=== PATIENT | male | born 1935 | race Caucasian/White ===

== ENCOUNTER → 2018-08-03 | Outpatient (CLI) | payer OTHER, MEDICARE ==
[~2018-08-03] MED LIST: ADULT LOW DOSE81 MG; B-100 COMPLEX1 EAC1; CARVEDILOL12.5 MG; FISH OIL 1,0001 EAC5; FUROSEMIDE 40 M40 M1; HYDRALAZINE 5050 M1; LIPITOR80 MG; LISINOPRIL40 MG; MULTI-VITAMIN1 EAC5; VITAMIN D1000 UNI1; VITAMINC500; XANAX 0.5 MG0.5 M1
== END ==
LOC: HYPER 07-25 16:23
DX: T81.89XA Other complications of procedures, not elsewhere classified, initial encounter (principal); I70.235 Atherosclerosis of native arteries of right leg with ulceration of other part of foot; L89.890 Pressure ulcer of other site, unstageable; L97.511 Non-pressure chronic ulcer of other part of right foot limited to breakdown of skin; L89.152 Pressure ulcer of sacral region, stage 2; L84 Corns and callosities; M86.8X8 Other osteomyelitis, other site; I13.2 Hypertensive heart and chronic kidney disease with heart failure and with stage 5 chronic kidney disease, or end stage renal disease; I50.9 Heart failure, unspecified; N18.6 End stage renal disease; H40.9 Unspecified glaucoma; Z85.46 Personal history of malignant neoplasm of prostate; Z85.828 Personal history of other malignant neoplasm of skin; Z99.2 Dependence on renal dialysis; Z87.891 Personal history of nicotine dependence; Z89.411 Acquired absence of right great toe; Z95.1 Presence of aortocoronary bypass graft; Y92.89 Other specified places as the place of occurrence of the external cause; Y83.8 Other surgical procedures as the cause of abnormal reaction of the patient, or of later complication, without mention of misadventure at the time of the procedure

== ENCOUNTER → 2018-08-15 | Outpatient (CLI) | payer OTHER, MEDICARE ==
[~2018-08-15] MED LIST changes: +COENZYME Q10100 MG PO; +IMDUR 60 MG TAB60 M1 PO; +LOPRESSOR25 PO; +PLAVIX 75 MG TA75 M1 PO; +RENA-VITE RX T1 EACH PO; +RENVELA800 MG PO; +TYLENOL EXTRA500 MG PO
== END ==
LOC: HYPER 06:52
DX: T81.89XD Other complications of procedures, not elsewhere classified, subsequent encounter (principal); I70.235 Atherosclerosis of native arteries of right leg with ulceration of other part of foot; L97.521 Non-pressure chronic ulcer of other part of left foot limited to breakdown of skin; L89.153 Pressure ulcer of sacral region, stage 3; L89.890 Pressure ulcer of other site, unstageable; L84 Corns and callosities; I13.0 Hypertensive heart and chronic kidney disease with heart failure and stage 1 through stage 4 chronic kidney disease, or unspecified chronic kidney disease; N18.6 End stage renal disease; I50.9 Heart failure, unspecified; B35.1 Tinea unguium; Z87.891 Personal history of nicotine dependence; Z85.46 Personal history of malignant neoplasm of prostate; Z99.2 Dependence on renal dialysis; Y83.8 Other surgical procedures as the cause of abnormal reaction of the patient, or of later complication, without mention of misadventure at the time of the procedure

== ENCOUNTER 2018-08-17 11:30 | Observation (INO) | payer OTHER, MEDICARE ==
[~2018-08-17] VITALS: Ht 180.3 cm; Wt 69.9 kg
[~2018-08-17 11:30] MED LIST changes: -COENZYME Q10100 MG PO; -IMDUR 60 MG TAB60 M1 PO; -LOPRESSOR25 PO; -PLAVIX 75 MG TA75 M1 PO; -RENA-VITE RX T1 EACH PO; -RENVELA800 MG PO; -TYLENOL EXTRA500 MG PO
[2018-08-17 12:23] VITALS: BP 125/44
[2018-08-17] MEDS ORDERED: TYLENOL EXTRA500 MG PO (12:33)
[2018-08-17] MEDS ORDERED: COENZYME Q10100 MG PO (12:37)
[2018-08-17] MEDS ORDERED: IMDUR 60 MG TAB60 M1 PO (12:38)
[2018-08-17] MEDS ORDERED: LOPRESSOR25 PO (12:38)
[2018-08-17] MEDS ORDERED: RENVELA800 MG PO (12:39)
[2018-08-17] MEDS ORDERED: RENA-VITE RX T1 EACH PO (12:39)
[2018-08-17] MEDS ORDERED: PLAVIX 75 MG TA75 M1 PO (17:11)
--- NOTE | 2018-08-17 18:34 | NUR ---
174- PT ARRIVED TO UNIT FROM IR POST ANGIOGRAM WITH STENT PLACEMENT TO R AYO. PT IS ON BEDREST UNTIL 230. PT HAD MARIANNA THAT WAS PULLED IN IR. R GROIN SITE. SOFT INTACT NO HEMATOMA. CAREGIVER AT BEDSIDE. PT DENIES PAIN.
[2018-08-17 19:30] VITALS: BP 105/42; BP 114/37
[2018-08-17 20:00] VITALS: BP 100/40
[2018-08-17 20:32] VITALS: BP 111/43
[2018-08-17 21:00] VITALS: BP 120/48
[2018-08-17 22:00] VITALS: BP 102/49
[2018-08-18] VITALS: BP 114/37
[2018-08-18 00:36] VITALS: BP 114/37
--- NOTE | 2018-08-18 04:31 | NUR ---
ASSUMED PT'S CAR AT 1920; PT. ON BED REST; INSTRUCTED NOT TO MOVE RLE UNTIL 2305; AOX4; STAFF WRITER AT THE BED SIDE; VS WNL; NO C/O PAIN; PEDAL PULSES PRESENT; 1+; R GROING AREA; DRY; NO HEMATOMA THROUGH THE NIGHT; REFUSED BP MEDICATION AT HS; AT 2330 HR BETWEEN 110-130'S; EDUCATED ABOUT THE NEED OF MEDICATION; ST UNDERSTANDING; MEDICATION GIVEN; AFTER 45 MIN HR ON THE 80'S; NO C/O DIZZINESS OR HEADACHE; REQUESTED TO SIT ON CHAIR AFTER MIDNIGHT; EDUCATED ABOUT CALLING BEFORE STANDING; ST. UNDERSTANDING; CALL APROPIATELY; ASSESSMENT CHARGED; FOLLOWING POC; WILL PASS ON REPORT.
[2018-08-18 04:45] VITALS: BP 113/52
--- NOTE | 2018-08-18 15:00 | NUR ---
ASSUMED CARE OF PATIENT AT 0700. PATIENT STATED WHEN I MET HIM THAT HE NEEDED TO BE DISCHARGED BY 0800 FOR OUTPATIENT DIALYSIS. ASSESSMENTS CHARTED. PATIENT RIGHT GROIN SITE IS WITHOUT EDEMA, ECCHYMOSIS OR BLOOD. PATIENT DENIES ANY DISCOMFORT. IV AND TELE REMOVED. PATIENT'S CAREGIVER WAS AT THE BEDSIDE AND ASSISTED THE PATIENT IN GETTING DRESSED. PATIENT WAS TAKEN TO THE [facility] ENTRANCE VIA WHEELCHAIR AND DRIVEN HOME BY HIS CAREGIVER.
== END 2018-08-18 08:35 | disposition home or self-care (01) ==
LOC: SPEC 11:30 → 2N 18:27 → SPEC 18:28 → 2N 18:28 → ENTRNSPT 08-18 08:09 → EDTRNSPTSTS 08-18 08:12 → 2N 08-18 08:35
PROVIDERS: ADMIT Internal Medicine Cardiovascular Disease
DX: I73.9 Peripheral vascular disease, unspecified (principal); N18.6 End stage renal disease; Z98.62 Peripheral vascular angioplasty status; Z99.2 Dependence on renal dialysis; Z79.82 Long term (current) use of aspirin; Z79.899 Other long term (current) drug therapy
CPT/HCPCS: 10081

== ENCOUNTER → 2018-08-29 | Outpatient (CLI) | payer OTHER, MEDICARE ==
[~2018-08-29] MED LIST changes: +COENZYME Q10100 MG PO; +IMDUR 60 MG TAB60 M1 PO; +LOPRESSOR25 PO; +PLAVIX 75 MG TA75 M1 PO; +RENA-VITE RX T1 EACH PO; +RENVELA800 MG PO; +TYLENOL EXTRA500 MG PO
== END ==
LOC: HYPER 06:44
DX: I70.235 Atherosclerosis of native arteries of right leg with ulceration of other part of foot (principal); L97.511 Non-pressure chronic ulcer of other part of right foot limited to breakdown of skin; L84 Corns and callosities; E11.51 Type 2 diabetes mellitus with diabetic peripheral angiopathy without gangrene; L89.890 Pressure ulcer of other site, unstageable; E11.69 Type 2 diabetes mellitus with other specified complication; M86.8X8 Other osteomyelitis, other site; E11.22 Type 2 diabetes mellitus with diabetic chronic kidney disease; N18.6 End stage renal disease; E11.39 Type 2 diabetes mellitus with other diabetic ophthalmic complication; H40.9 Unspecified glaucoma; I11.0 Hypertensive heart disease with heart failure; I50.9 Heart failure, unspecified; Z99.2 Dependence on renal dialysis; Z85.828 Personal history of other malignant neoplasm of skin; Z85.46 Personal history of malignant neoplasm of prostate; Z87.891 Personal history of nicotine dependence

== ENCOUNTER 2018-09-01 09:58 | Inpatient (IN) | payer OTHER, MEDICARE ==
[~2018-09-01] VITALS: Ht 180.3 cm; Wt 62.3 kg
--- NOTE | ~2018-09-01 | HC ---
[facility] [place] [address] CONSULTATION Name: MARIIA MANZANARES Room #: 219-P [facility] IN M.R.#: [id number] Admission: 09/01/18 ������������������ Attend Phys: Anil Fernández Discharge: ������������������ Date of : 34 Report #: [id number] THIS REPORT FOR: //name// CC: Anil Tatum As you know, the patient is an 83-year-old male who presented to [facility] initially with right lower extremity edema and erythema consistent with cellulitis. Unfortunately, on presentation on 09/01/2018, the patient was also having significant dyspnea and was found to have a large area of right lung mass. He has had a history of lung cancer previously that was treated with both radiation and chemotherapy and had been in remission apparently, but at this point in time the patient had again during his admission been found to have a large mass, cor pulmonale and respiratory failure. The patient currently reports his biggest concern is his shortness of breath and he would like to have this addressed; if this were to be addressed then he would not like to proceed with further options. This has been discussed with him about the possibility extensively of having a bronchoscopy which could be of benefit to him to have radiation therapy in order to decrease mass size and even for biopsy to determine if this is a cancer that is amenable to some chemotherapy treatments. Again, the patient expressed his noninterest in this and would like to return home. Does have a 24-hour caregiver and his family member who is present at bedside. The patient denies significant pain at this time. His right lower extremity appears to be improved. PAST MEDICAL HISTORY: Peripheral vascular disease, right carotid endarterectomy secondary to this, coronary artery disease status post coronary artery bypass graft, hypertension, gastroesophageal reflux disease, hyperlipidemia, aortobifemoral bypass, history of cerebral aneurysm which could not previously be addressed in 1984, anemia, gout, right renal artery stenosis status post stenting, end-stage renal disease. ALLERGIES: SULFA, WARFARIN. MEDICATIONS: On presentation, he was on vitamin D3, Lipitor, aspirin, Imdur, Plavix, Flomax, metoprolol, Renvela. SOCIAL HISTORY: Former smoker, greater than 1 year. Daughter is present at bedside who is his caregiver. He is currently full code. FAMILY HISTORY: Noncontributory. REVIEW OF SYSTEMS: GENERAL: Does report weight loss. Does report decrease in appetite. He denied night sweats. HEENT: Denies any hearing changes or visual changes. CARDIOVASCULAR: Denies chest pain or palpitation. He does report again air [address] [address] CONSULTATION Name: MARIIA MANZANARES Room #: 219-P [facility] IN M.R.#: [id number] Admission: 09/01/18 ������������������ Attend Phys: Anil Fernández Discharge: ������������������ Date of : 34 Report #: [id number] hunger. RESPIRATORY: Air hunger with tachypnea. He does report cough with production. ABDOMEN: He denies nausea, vomiting, constipation or diarrhea. EXTREMITIES: Denies significant right lower extremity pain at this time. PHYSICAL EXAMINATION: VITAL SIGNS: Temperature 36.5, pulse 110, respirations 20, blood pressure 140/52, 98% on nasal cannula. GENERAL: The patient is alert. He is oriented x 3. He is in no acute distress. HEENT: Extraocular muscles appear to be intact. No scleral icterus. RESPIRATORY: Does have mild tachypnea. No apparent respiratory distress. No accessory muscle use. He does have nasal cannula in place. CARDIOVASCULAR: Regular rate and rhythm without murmur, although slightly tachycardic at times. ABDOMEN: Soft, nontender to palpation x 4. Positive bowel sounds noted in all 4 quadrants, but diminished. LABORATORY DATA: Included hemoglobin 11.3, creatinine 7.6. ASSESSMENT AND PLAN: 1. Right lung mass, likely consistent with a cancerous process. I have discussed and spent approximately 40 minutes at advanced care planning, a discussion of code status was made and changed to DNR with outside the hospital DNR status completed. Discussed previous options for bronchoscopy. The patient does not want to pursue this at this time if he can maintain control of his symptoms despite the possible benefits to him as far as control of his symptoms including lessening his dyspnea. The patient does wish to pursue palliative care, which I have discussed with case management and primary team. In this way he is likely to be able to pursue continued dialysis, which he would like to do for the time being, although I discussed in the future that that may be the first thing that he wishes to discontinue if he were to have worsening overall symptoms to the point to where they were difficult to control with medication, stoppage of dialysis may allow for more comfortable than the cancerous process itself. He is understanding of this overall discussion and his daughter is as well, and they are understanding of medications to control comfort. I have started low dose half of a 5/325 [place] tab 4 times daily for right now to see if we can control his air hunger. We can increase frequency or even the amount of medication, although low-dose opiates are often sufficient to control air hunger, so I would start with low dosage and maybe increased frequency if needed. At this time, he does not appear to have significant anxiety, so I think that this is well controlled. 2. End-stage renal disease. Discussion as above. Again, he would like to pursue continued dialysis at this current time with palliative care measures. I believe we can arrange for this. I believe we can likely keep him more comfortable. He already has home oxygen arranged, so I think that he is, once [facility] [address] [place] [address] CONSULTATION Name: MANZANARESMARIIA Room #: 219-P [facility] IN .R.#: [id number] Admission: 09/01/18 ������������������ Attend Phys: Anil Fernández Discharge: ������������������ Date of : 34 Report #: [id number] he is treated for his cellulitis, likely to be a candidate for discharge home with home palliative care not hospice. 3. Hypoxic respiratory failure. Again, he has home oxygen set up. I believe he is comfortable at this time if we can get his air hunger under control. Thank you very much for this consultation. Please call me for any questions regarding this patient. ��������������������������������������������� ���������������������������������������� By: ��������������������������������������������� 49 [id number] Gigi Negron DO /nt
[2018-09-01 09:59] VITALS: BP 148/56
[2018-09-01 11:26] LABS: BASOPHILS 0.2 % (0.0-2.0); EOSINOPHILS 0.5 % (0.0-3.0); HEMOGLOBIN 11.3 gm/dL (14.0-18.0); MCH 33.7 pg (26.0-34.0); MCHC 33.1 g/dL (28.0-37.0); MCV 101.9 fL (80.0-100.0); MONOCYTES 6.7 % (1.0-8.0); POLYS 88.6 % (36.0-66.0); RBC 3.34 mil/uL (4.50-6.00); RDW 15.5 % (10.5-14.5); WBC 6.8 thou/uL (4.0-11.0)
[2018-09-01 11:40] LABS: ANION GAP 13 mmol/L (7-16); BUN 78 mg/dL (7-18); CALCIUM 9.4 mg/dL (8.5-10.1); CHLORIDE 96 mmol/L (98-107); CO2 26 mmol/L (21-32); CREATININE 7.6 mg/dL (0.7-1.3); GLUCOSE 134 mg/dL (74-106); SODIUM 135 mmol/L (136-145)
[2018-09-01 11:49] LABS: TROPONIN-I <0.06 ng/mL (<0.06)
[2018-09-01] MEDS ORDERED: FLOMAX0.4 MG PO (12:43)
[2018-09-01] MEDS ORDERED: PROAIR HFA8.5 GM INH (12:43)
[2018-09-01 13:28] LABS: PLATELET COUNT 75 thou/uL (150-400)
[2018-09-01 17:51] VITALS: BP 136/47
--- NOTE | 2018-09-01 18:16 | NUR ---
CALLED TO GIVE REPORT, INPATIENT NURSE NOT READY WILL CALL BACK.
[2018-09-01 18:45] VITALS: BP 131/56
[2018-09-01 21:50] VITALS: BP 138/73
[2018-09-02 03:10] VITALS: BP 135/59
--- NOTE | 2018-09-02 08:05 | NUR ---
[facility] 1900. PT/VITALS STABLE. DENIES PAIN. UP WITH WALKER TO BATHROOM WITH STB ASSIST. ASSESSMENT [id number]. PROGRESSING WITH POC. AFIB ON MONITOR WITH RATE CONTROLLED AT REST. RATE INCREASES WITH ACTIVTY. SO A WITH ACTIVITY. O2 INCREASED WITH ACTIVITY AND DECREASED TO HOME DOSE AT 2.5L WITH REST. TOLERATING HOME DOSE WELL. PLAN RENAL/HEMONC CONSULT FOR FURTHER TREATMENT AND PLAN OF CAQRE. WILL CONTINUE TO MONITOR AND FOLLOW WITH POC.
[2018-09-02 09:44] VITALS: BP 117/55
[2018-09-02 12:03] VITALS: BP 132/71
--- NOTE | 2018-09-02 12:04 | EKG ---
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1935 Requested By: Jose Noriega Order Number: [id number] MD: Dani Rojas Measurements Intervals [place] Rate: 98 P: [place]: QRS: 73 QRSD: 107 T: -14 QT: 410 QTc: 524 Interpretive Statements Atrial fibrillation RSR' in V1 or V2, right VCD Nonspecific ST and T wave abnormality Prolonged QT interval Compared to ECG 04/08/2007 22:38:07 atrial fibrillation has replaced sinus rhythm nonspecific ST and T wave abnormality is now present Electronically Signed On 09-02-2018 12:04:28 CDT by Dani Rojas [email or web address] ��������������������������������������������� <ELECTRONICALLY SIGNED> ���������������������������������������� By: Dani Rojas MD, [facility] ��������������������������������������������� 09/02/18 1204 1030 1030 Dani Rojas MD, [facility] /EPI
--- NOTE | 2018-09-02 16:19 | NUR ---
Case opened to follow for me planning and consult for palliative/or hospice followup at me. Pt admitted with sob and new lung mass. Pt with history of lung cancer with radiation tx only. Pt is also a dialysis pt and utilizes the [facility] t-th-sat @ 1100. The pt is a&ox4 this afternoon and dialyzing. Financial Service Professional visited with him and his president/gm production & live experiences Mati Thompson at bedside. The pt is receptive to either palliative hh or hospice but would like to continue dialysis as long as he is able to get to his clinic for treatment. He is a DNR and does not want any workup or tx for his cancer. He wants to be cared for in his home. Options discussed for both Palliative tdp displays analyst/hh visits at home as well as hospice referrals to those agencies that will allow for continued dialysis tx. Hospice and Palliative care may be able to accept for hh in a week or so and [facility] is willing to consider him with continued dialysis tx. They will try to come by this weekend for an info visit. Support provided. Will follow.
[2018-09-02 16:50] VITALS: BP 140/52
--- NOTE | 2018-09-02 16:54 | NUR ---
FAXED REFERRAL TO [facility] FOR EVAL POSS DC EARLY NEXT WEEK. FAXED REFERRAL TO HOSPICE PALLIATIVE HH TO SET UP BEDSIDE EVAL WITH CAREGIVER (ROBERT) AND SON OVER THE WEEKEND FOR POSS. DC EARLY NEXT WEEK. DCP TO FOLLOW.
--- NOTE | 2018-09-02 18:15 | NUR ---
PT CARE ASSUMED APPROX 0700. PT ALERT AND ORIENTED X4. DENIES PAIN. REPORTS SOA. VSS. MEDS HELD THIS MORNING BECAUSE HD NURSE REPORTED THAT SHE WOULD BE DONE TO RUN PT EARLY BUT NEVER CAME. ABX HELD AT 1300 DUE TO HD FINALLY GETTING STARTED. DR LAL STARTED HYDRCODONE TO ASSIST WITH BREATHING. PT REPORTS SLIGHT IMPROVEMENT AT THIS TIME. FAMILY AT BEDSIDE MOST OF SHIFT. HD COMPLETED WITHOUT ISSUE. PT HAS POOR APPETITE. FAMILY ENCOURAGING TO EAT. ABT CHANGED THIS SHIFT. PT TOLERATING. CASE MANAGEMENT SENDING REFERRALS FOR HOSPICE AND PALLIATIVE CARE PROGRAMS PER PT AND FAMILY REQUEST. PT UP WITH WALKER AND SBA. STEADY WITH WALKER. CONTINUES TO GET TACHYCARDIC WITH MOBILITY. NO DISTRESS NOTED.
[2018-09-02 20:00] VITALS: BP 121/46
[2018-09-03 04:00] VITALS: BP 111/49
--- NOTE | 2018-09-03 06:03 | NUR ---
[facility] 1900. PT/VITALSD STABLE. DENIES ANY PAIN. UP WITH WALKER TO BATHROOM. AFIB ON MONITOR WITH NORMAL HR AT REST. HR GOES UP TO 120s AND 130s WITH EXERTION. ADEQUATE SLEEP NOTED. ASSESSMENT CHARTED. PROGREESING WITH POC. PLAN IS TO CONTINUE TREATING WITH ABX AND CONTINUE F/U WITH HEMONC/NEPHROLOGY/PALLIATIVE CARE. DIALYSIS TO BE DONE TODAY. WILL CONTINUE TO MONITOR AND FOLLOW WITH POC
--- NOTE | 2018-09-03 07:23 | HC ---
[facility] [place] [address] CONSULTATION Name: MARIIA MANZANARES Room #: 219-P [facility] IN M.R.#: [id number] Admission: 09/01/18 ������������������ Attend Phys: Anil Fernández Discharge: ������������������ Date of : 34 Report #: [id number] THIS REPORT FOR: //name// CC: Anil Tatum REASON FOR CONSULTATION: End-stage renal disease. REASON FOR PRESENTATION: Shortness of breath and lower extremity wound. HISTORY OF PRESENT ILLNESS: An 83-year-old with past medical history of end-stage renal disease, who dialyzes every Wednesday, and Wednesday, but missed his dialysis yesterday. He has extensive peripheral vascular disease, coronary artery disease, status post CABG in 1986. He presented with shortness of breath and worsening right lower extremity wound. He was admitted to further evaluate. He tells me that he has been on dialysis for the last 4 years. This was attributed to his hypertension. He denies history of diabetes mellitus. He is utilizing a right-sided AV graft. His dispensing optician apprentice is Dr. Schmitt. He goes to [facility]. When the patient presented yesterday, he had some issues with fluid retention. Further evaluation also revealed that the patient has significant cardiomegaly with a large mass in the right hilum. There are also multiple masses that had developed through the right lung. I am being consulted to manage the patient's end-stage renal disease related issues. PAST MEDICAL HISTORY: 1. End-stage renal disease. 2. Peripheral vascular disease. 3. Coronary artery disease. 4. Extensive procedure for his peripheral vascular disease. 5. Right endarterectomy. 6. Post-CABG. 7. Hypertension. 8. Aortobifemoral bypass. 9. Anemia. 10. Right renal artery stent. 11. Atrial fibrillation. 12. Hyperlipidemia. 13. Cerebral aneurysm. MEDICATIONS: 1. Cholecalciferol. 2. Atorvastatin. 3. Aspirin. 4. Plavix. 5. Flomax. 6. Metoprolol. 7. Sevelamer. [facility] [address] [address] CONSULTATION Name: MARIIA MANZANARES Room #: 219-P [facility] IN ..#: [id number] Admission: 09/01/18 ������������������ Attend Phys: Anil Fernández Discharge: ������������������ Date of : 34 Report #: [id number] ALLERGIES: SULFA, WARFARIN. FAMILY HISTORY: Significant for hypertension. REVIEW OF SYSTEMS: GENERAL: No fever or chills. CARDIOVASCULAR: Significant for shortness of breath. PULMONARY: Significant for cough and shortness of breath. GASTROINTESTINAL: No nausea or vomiting. Significant for weight loss. MUSCULOSKELETAL: Significant for back pain and right lower extremity pain. SKIN: Significant for rash in his right lower extremity. NEUROLOGICAL: No dizziness. No headache. PHYSICAL EXAMINATION: GENERAL: The patient is awake, alert, oriented, frail, lethargic. VITAL SIGNS: Blood pressure was 135/59. HEAD AND NECK: No jugular venous distention. CHEST: Diffuse rhonchi. CARDIOVASCULAR: Distant S1 and S2. ABDOMEN: Soft, nontender. LOWER EXTREMITIES: Erythematous changes consistent with peripheral vascular disease on both lower extremities along with venous stasis changes. LABORATORY DATA: Reviewed. Sodium 135, potassium 4, BUN is 78, creatinine 7.6, platelet is 75. Chest CT as described above with multiple masses and right hilar mass. ASSESSMENT, IMPRESSION AND PLAN: 1. End-stage renal disease. 2. Coronary artery disease. 3. Right lung mass. 4. Multiple pulmonary nodules and masses. 5. Peripheral vascular disease. 6. We will arrange for the patient to have hemodialysis done today. Primary team is addressing his lower extremity vascular issues. 7. Primary team is addressing his ongoing lung issues. 8. Resume his outpatient medications. 9. Workup in progress for his lung issues. 10. We will continue to follow along during his hospital stay. ��������������������������������������������� <ELECTRONICALLY SIGNED> ���������������������������������������� By: Abhi Reis MD ��������������������������������������������� 09/03/18 0723 0746 25 Abhi Reis MD /nt
--- NOTE | 2018-09-03 08:07 | HC ---
[facility] [address] [place] [address] CONSULTATION Name: MARIIA MANZANARES Room #: 219-P ADM IN M.R.#: [id number] Admission: 09/01/18 ������������������ Attend Phys: Anil Fernández Discharge: ������������������ Date of : 34 Report #: [id number] THIS REPORT FOR: //name// CC: Abhi Christianson MD REQUESTING PHYSICIAN: Anil Fernández M.D. REASON FOR CONSULTATION: Right lung and pleural masses. HISTORY OF PRESENT ILLNESS: The patient is a very pleasant 83-year-old gentleman who has had increasing shortness of air and also has a right lower extremity redness and swelling, worrisome for infection. He had a temperature of 99.7. He also reports a hx of right sided lung cancer for which he tried chemo at [facility] and developed very low blood counts and they did not continue the chemotherapy. He says they did a bone marrow to invesstigate low blood counts. He did complete radiation therapy with Dr Jackie Cabrales. He has not seen any cancer doctors for several years. Unfortunately, his CAT scan here in the hospital shows some enlarged lymph nodes near his ascending aorta. It also shows a right hilar mass and also pleural based mass and perhaps another lung mass. The patient has been on Plavix. He is not sure how long he needs to be on it. The patient is a little more short winded than usual. He has a slight cough. No blood that we are aware of. He has no prior cancer. Weight has been mostly stable that may have been down a little bit. He does have the redness of his legs. No new bowel changes. No blood in the stool. PAST MEDICAL HISTORY: History of right lung cancer treated with radiation therapy and some amount of chemo that was held due to toxicity. He hasnt had follow up in years. Notable for a history of AFib, CABG in 1986, right carotid endarterectomy in 1999, peripheral vascular disease, hypertension, GERD, hyperlipidemia, aortofemoral bypass in 1999, cerebral aneurysm in 1984, anemia, gout, right renal artery stent, end-stage renal disease. He had the atherectomy and a stent place with Dr. Pelaez on 08/17/2018. SOCIAL HISTORY: The patient is retired. 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 His about 10 years ago. He stopped smoking over 30 years ago. He has children here in town. He has a inspector elevators that he lives with, I am not sure of its male or female or paid and that person has a cat. MEDICATIONS: At this time in the hospital include cefepime 0.5 grams post-dialysis, tamsulosin 0.4 daily, sevelamer 800 mg with meals, heparin 5000 units t.i.d., metoprolol 25 b.i.d., Plavix 75 at bedtime, insulin on sliding [address] [address] CONSULTATION Name: MARIIA MANZANARES Room #: 219-P [facility] IN M.R.#: [id number] Admission: 09/01/18 ������������������ Attend Phys: Anil Fernández Discharge: ������������������ Date of : 34 Report #: [id number] scale, morphine sulfate p.r.n., hydrocodone p.r.n., zolpidem p.r.n., MiraLax p.r.n., nitroglycerin p.r.n. and Zofran p.r.n. PHYSICAL EXAMINATION: GENERAL: The patient appears his stated age. VITAL SIGNS: Height is 5 feet 11 inches or 180.3 cm and weight is 155 pounds or 66.6 kilograms. Blood pressure 135/59, O2 sat 99%, respirations 18, pulse 56 and temperature 97.6. MOOD: The patient is alert and pleasant. NEUROLOGICAL: The patient is normal speech and thought pattern moving extremities. LUNGS: Did have some slight coarseness in the mid right. HEART: Appears regular rate. No definite murmur. LYMPHATICS: No enlarged lymph nodes in the supraclavicular, cervical, axillary or inguinal region. ABDOMEN: Slightly protuberant, nontender. Does talk about some mild discomfort. I think it is from abdominal breathing. EXTREMITIES: Without clubbing or cyanosis. There is some redness, more in the right ankle than left ankle. There is also probably some trace edema about maybe 1.5 mm on each ankle were just above the malleolus. LABORATORY DATA: Notable BUN of 78 and creatinine 7.6. White count 6.8, hemoglobin 11.3, MCV 101.9, RDW 15.5 and platelets are 75. Differential normal. DISCUSSION: Discussed with the patient that most likely this is a second primary lung cancer given the time interval since the first cancer. If it is lung cancer, I think, it would be difficult treating him with regular cytotoxic chemotherapy. I think given his performance status and minimal support it would be difficult for him to tolerate targeted therapy. The PVD, low platelets, cellulitis, poor performance status would make therapy difficult and likley somewhat dangerous for him. If he recovers from current illness and gets stronger than we could consider a biopsy to see if he has a targetable mutation or overexpression of PD-L1. If this is another type of cancer it is hard for me to imagine what therapy he could tolerate to derive benefit from it. It would also be very appropriate to consider hospice. ASSESSMENT AND PLAN: 1. History of right lung cancer now with Right lung mass with pleural mass, very worrisome for second primary lung cancer metastatic to the pleura and also had a lung mass. This could represent a recurrence, but 9 years later this would be unlikely. I dont think he would tolerate chemotherapy and i have sstrong concerns about whether he could tolerate targeted therapy with his current performance status and current support system. Personally i would favor hospice and palliative care. He would need to be off of plavix and any blood thinners if a biopsy were to be done. [facility] [address] [place] [address] CONSULTATION Name: MARIIA MANZANARES [place] Room #: 219-P ADM IN M.R.#: [id number] Admission: 09/01/18 ������������������ Attend Phys: Anil Fernández Discharge: ������������������ Date of : 34 Report #: [id number] He is also to be off the warfarin, he was on earlier or questionable the warfarin. 2. Thrombocytopenia. We would need to get old records to see if this is old or new. 3. Diabetes. Sliding scale insulin and other medications. 4. End-stage renal disease, dialysis per others. 5. Hypertension, medications per others. 6. Peripheral vascular disease, per others. 7. Hyperlipidemia, per others. 8. Gout, per others. 9. Benign prostatic hypertrophy, Flomax per others. 10. Possible cellulitis, continues cefepime antibiotics per others. 11. History of atrial fibrillation, per others. ��������������������������������������������� <ELECTRONICALLY SIGNED> ���������������������������������������� By: Alexsander Dukes MD ��������������������������������������������� 09/03/18 0807 0841 0024 Alexsander Dukes MD /nt
[2018-09-03 08:10] VITALS: BP 136/58
--- NOTE | 2018-09-03 14:56 | HC ---
[facility] [place] [address] CONSULTATION Name: MARIIA MANZANARES Room #: 219-P [facility] IN M.R.#: [id number] Admission: 09/01/18 ������������������ Attend Phys: Anil Fernández Discharge: ������������������ Date of : 33 Report #: [id number] THIS REPORT FOR: //name// CC: Anil CalvinMargarita REFERRING PHYSICIAN: Dr. eFrnández. REASON FOR REFERRAL: Lung mass. HISTORY OF PRESENT ILLNESS: The patient is an 83-year-old gentleman who presented to the ED with progressive dyspnea along with lower extremity edema. Chest CT was abnormal. A pulmonary consultation was requested. The patient states that he was diagnosed with lung cancer in 2009. He underwent radiation therapy. He could not tolerate chemotherapy due to profound pancytopenia. His cancer was in his right lung field. He has not had regular followup. He has smoked most of his life, having quit smoking several years ago. He has been told that he has COPD. For the past 2 days, he has noticed increasing lower extremity edema. There were some areas of erythema. For that reason, he presented to the Emergency Room. CT chest revealed multiple lung masses involving the right lung field. He has extensive peripheral artery disease, undergoing multiple procedures more recently. He has had an angiogram and atherectomy and was placed on Plavix by Dr. Pelaez. PAST MEDICAL HISTORY: As mentioned above, history of lung cancer diagnosed in 2009 at [facility], undergoing radiation therapy; coronary artery disease, undergoing coronary artery bypass surgery; peripheral artery disease, undergoing right carotid endarterectomy; aortobifemoral bypass; history of cerebral aneurysm; right renal artery stent placement; has end-stage renal disease, undergoing hemodialysis; paroxysmal atrial fibrillation; hypertension; gastroesophageal reflux disease; hyperlipidemia; anemia; long history of tobacco use, having quit in 1984; history of gout; right foot ulcer. PAST SURGICAL HISTORY: As mentioned above. ALLERGIES: SULFA, WARFARIN, reactions unspecified. HOME MEDICATIONS: List reviewed including Proventil. FAMILY HISTORY: Noncontributory. [facility] [address] [address] CONSULTATION Name: MARIIA MANZANARES Room #: 219-P [facility] IN M.R.#: [id number] Admission: 09/01/18 ������������������ Attend Phys: Anil Fernández Discharge: ������������������ Date of : 33 Report #: [id number] SOCIAL HISTORY: Tobacco use as mentioned above. He denies any alcohol use. He has children who live close by and many close friends. PHYSICAL EXAMINATION: GENERAL: He is awake, alert, in no distress. VITAL SIGNS: Temperature is 97.9 degrees Fahrenheit, pulse is 86, respiratory rate is 20, blood pressure 138/73 mmHg, saturation 99%. HEENT: Normocephalic, atraumatic. NECK: Supple, without any lymphadenopathy or thyromegaly. CHEST: Breath sounds are fair. Decreased in the bases, few scattered crackles. No wheezes. CARDIOVASCULAR: Normal S1, S2. There are no murmurs or gallop. There is no JVD. There is no carotid bruit. Pulses are 2+/4+ bilaterally. ABDOMEN: Soft, nontender, no organomegaly or masses felt. GENITOURINARY: Deferred. RECTAL: Deferred. EXTREMITIES: No edema, cyanosis or clubbing. DIAGNOSTIC DATA: CT chest as mentioned above showing right hilar mass, narrowing of the right upper lobe and right middle lobe and right lower lobe bronchi, right middle lobe lung mass abutting the pleura, septal thickening involving the right lower lobe, right pleural thickening and calcification, some evidence of volume loss in the right lung field along with cardiomegaly. CT abdomen and pelvis notable for bilateral pleural effusion, renal atrophy, left adrenal mass, bladder wall thickening, degenerative changes in the spine, splenomegaly. V/Q scan showed intermediate scan. LAB DATA: Electrolytes: Sodium 135, potassium 4.0, chloride 96, CO2 of 26, BUN 78, creatinine 7.6, WBC 6800, hemoglobin 11.3, platelets 75,000. IMPRESSION: 1. Multiple lung masses, right lung field in this 83-year-old white male with a history of lung cancer in 2009. He could not tolerate chemotherapy. He was only given radiation therapy. There are some radiation changes in the chest CT. New lung masses likely represent recurrent bronchogenic carcinoma. 2. Lower extremity edema, cellulitis may be related to paraneoplastic syndrome or possible cor pulmonale. 3. Coronary artery disease, status post coronary artery bypass surgery. 4. Peripheral artery disease, undergoing right carotid endarterectomy, renal artery stent, aortobifemoral bypass surgery. 5. Hypertension. 6. Gastroesophageal reflux disease. 7. Gout. 8. End-stage renal disease, undergoing hemodialysis. [address] [address] CONSULTATION Name: MARIIA MANZANARES Room #: 219-P [facility] IN M.R.#: [id number] Admission: 09/01/18 ������������������ Attend Phys: Anil Fernández Discharge: ������������������ Date of : 34 Report #: [id number] RECOMMENDATION AND DISCUSSION: The patient had earlier been seen by Dr. Gigi Negron from palliative care. At this time, the patient is requesting for conservative management. He prefers hospice care. He does not wish any further invasive workup and/or treatment if needed. I concur with the patient's decision. Not much to add from pulmonary standpoint. We will standby. Please call if there are any questions. Thank you for this consultation. ��������������������������������������������� <ELECTRONICALLY SIGNED> ���������������������������������������� By: Kolton Christianson MD ��������������������������������������������� 09/03/18 1456 [id number] [id number] Kolton Christianson MD /britt
[2018-09-03 16:00] VITALS: BP 122/41
--- NOTE | 2018-09-03 16:58 | NUR ---
ASSUMED CARE OF PT AT 0700. PT A&OX4, AND AWARE OF HIS DIAGNOSIS/PROGNOSIS. PT CALM AND HAS SUPPORTIVE FAMILY IN THE ROOM. PT WAS TACHYCARDIC WHEN UP AND AFTER DIALYSIS. METOPROLOL GIVEN AND HEART RATE WITHIN NORMAL LIMITS. PT HAD UPPER RIGHT QUAD ABDOMINAL PAIN TODAY THAT WAS PARTIALLY CONTROLLED WITH MED. WILL CONT WITH POC.
[2018-09-03 19:29] VITALS: BP 108/41
[2018-09-04 00:09] LABS: HEPATITIS B SURFACE AG Negative (Negative)
[2018-09-04 04:00] VITALS: BP 117/67
[2018-09-04 08:00] VITALS: BP 123/55
--- NOTE | 2018-09-04 08:25 | NUR ---
ASSUME CAFRE 1900. PT/VITALS STABLE. BP RUNS SOFT. DENIES ANY PAIN. UP WITH WALKER TO BATHROOM. REGULAR BM NOTED. PROGRESSING SLOWY WITH POC. ASSESSMENT AAS CHARTED. PLAN IS TO CONTINUE ABX TREATMENT AND MANAGE TO IMPROVE LUNG FUNCTION MUCH A S MUCH POSSIBLE. WILL CONTINUE TO MONITOR AND FOLLOW WITH POC
[2018-09-04 12:00] VITALS: BP 123/56
--- NOTE | 2018-09-04 16:43 | NUR ---
ASSUMED CARE OF PT AT 0700. PT A&OX4, UP WITH STANDBY. PT PLEASANT AND POSITIVE AND APPEARS TO BE COPING WELL WITH HIS CANCER DIAGNOSIS/PROGNOSIS. PT HAD FAMILY VISITING TODAY. BLOOD PRESSURE RUNS LOW AND PT WAS SINUS RHYTHM TO SINUS TACH ON TELEMETRY. PT SCHEDULED FOR DIALYSIS IN AM (09/05/18).
[2018-09-04 20:00] VITALS: BP 123/52
[2018-09-05 03:48] VITALS: BP 120/46
--- NOTE | 2018-09-05 06:29 | NUR ---
ASSUME CARE 1900. PT/VITALS STABLE. INTERMITTENT ABDO PAIN. UP WITH WALKER TO BATHROOM WITH ASSISTANCE. ASSESSMENT CHARTED. PROGRESSING WITH POC. PLAN IS FOR POSSIBLE DISCHARGE TODAY HOME WITH HOSPICE. WILL CONTINUE TO MONITOR AND FOLLOW WITH POC
[2018-09-05 11:38] VITALS: BP 124/49
[2018-09-05 12:38] VITALS: BP 124/49
--- NOTE | 2018-09-05 15:33 | NUR ---
Assumed pt care at 7am.Pt in bed resting with o2 on.Assessment completed.vss. Caregiver at bs at all times assisting pt with care.Dr Chase and Joe here,dc order noted.corporate traffic manager assisted with dc plan and compliled by this rn.At 1533,pt dc home in [place] with rn primary care.
--- NOTE | 2018-09-05 16:55 | NUR ---
Rami and patient report they met with [facility] hospice over the weekend and plan home with [facility]. patient plans to cont with dialysis. Called [facility] who reports they met with patient and plan to admit patient to their services at md. Faxed orders to [facility] and [facility]. Updated [facility] today. Updated [facility] timeframe. Offered to call son but patient and Rami report not necessary. Patient dc home with planned hospice admission at home. Outside DNR form signed and orginal given to patient.
== END 2018-09-05 15:32 | disposition hospice, home (50) | DRG 189 ==
LOC: ER 09:58 → EROBS 17:25 → 2N 17:25 → ENTRNSPT 09-05 15:10 → EDTRNSPTSTS 09-05 15:22 → 2N 09-05 15:32
PROVIDERS: Emergency Medicine; Hospitalist; ADMIT Hospitalist
PROC: 5A1D70Z Performance of Urinary Filtration, Intermittent, Less than 6 Hours Per Day (ICD-10-PCS; principal; 2018-09-02)
DX: J96.01 Acute respiratory failure with hypoxia (principal); N18.6 End stage renal disease; C34.90 Malignant neoplasm of unspecified part of unspecified bronchus or lung; I12.0 Hypertensive chronic kidney disease with stage 5 chronic kidney disease or end stage renal disease; L03.115 Cellulitis of right lower limb; D61.818 Other pancytopenia; J90 Pleural effusion, not elsewhere classified; R91.8 Other nonspecific abnormal finding of lung field; Z66 Do not resuscitate; I27.81 Cor pulmonale (chronic); J44.9 Chronic obstructive pulmonary disease, unspecified; D64.9 Anemia, unspecified; I25.10 Atherosclerotic heart disease of native coronary artery without angina pectoris; N40.0 Benign prostatic hyperplasia without lower urinary tract symptoms; M10.9 Gout, unspecified; I48.0 Paroxysmal atrial fibrillation; I73.9 Peripheral vascular disease, unspecified; E78.5 Hyperlipidemia, unspecified; K21.9 Gastro-esophageal reflux disease without esophagitis; Z95.1 Presence of aortocoronary bypass graft; Z88.2 Allergy status to sulfonamides; Z79.82 Long term (current) use of aspirin; Z88.8 Allergy status to other drugs, medicaments and biological substances; Z87.891 Personal history of nicotine dependence; Z99.2 Dependence on renal dialysis
CPT/HCPCS: 10081; 32100